=== PATIENT | male | born 2000 | race Caucasian/White ===

== ENCOUNTER 2022-01-09 18:34 | Emergency (ER) | payer OTHER ==
[2022-01-10] MEDS ORDERED: PAROXETINE HCL30 MG PO (13:06)
[2022-01-10] MEDS ORDERED: DIVALPROEX SOD500 MG PO (13:06)
[2022-01-10] MEDS ORDERED: HYDROXYZINE HCL25 MG PO (13:07)
[2022-01-10] MEDS ORDERED: GUANFACINE HCL E3 MG PO (13:07)
[2022-01-10] MEDS ORDERED: QUETIAPINE FUM100 MG PO (13:08)
== END 2022-01-10 14:20 | disposition short-term general hospital (02) ==
LOC: ER1 18:34
DX: R45.88 Nonsuicidal self-harm (principal); Z20.822 Contact with and (suspected) exposure to COVID-19
CPT/HCPCS: 99285; U0002